=== PATIENT | male | born 1965 | race Caucasian/White ===

== ENCOUNTER 2016-06-29 05:12 | Day surgery (SDC) | payer BC ==
[2016-06-21 08:19] VITALS: BMI 26.6
[2016-06-29] MEDS ORDERED: BUPIVACAINE HCL/PF 0.5% (5MG/ML) 10 ML VIAL ONE (08:31)
[2016-06-29] MEDS ORDERED: LIDOCAINE HCL 1%, 10 MG/ML (20ML VIAL) ONE (08:31)
[2016-06-29] MEDS ORDERED: ceFAZolin SODIUM 1 GM VIAL ONE (08:44)
[2016-06-29] MEDS ORDERED: SODIUM CHLORIDE 0.9% P/F 10 ML VIAL IJ ONE (08:44)
[2016-06-29] MEDS ORDERED: KETOROLAC TROMETHAMINE 30 MG/1 ML VIAL ONE (08:44)
[2016-06-29] MEDS ORDERED: DEXAMETHASONE SOD PHOSPHATE 4 MG/1 ML VIAL ONE (08:44)
[2016-06-29] MEDS ORDERED: MIDAZOLAM HCL 2 MG/2 ML SINGLE DOSE VIAL ONE (08:44)
[2016-06-29] MEDS ORDERED: ceFAZolin SODIUM 1 GM VIAL IVPB ONE (08:56)
[2016-06-29] MEDS ORDERED: BUPIVACAINE HCL/PF 0.5% (5MG/ML) 10 ML VIAL IJ ONE (09:07)
--- NOTE | 2016-06-29 09:33 | HP ---
Satellite [facility] - Chief Complaint Chief Complaint: right middle finger pain/locking - Past Medical History Allergies/Adverse Reactions: Allergies Allergy/AdvReac Type Severity Reaction Status Date / Time No Known Drug Allergies Allergy Verified 06/29/16 08:30 - Current Medications Current Medications: Home Medications Medication Instructions Recorded Hydrocodone/Acetaminophen 1 each PO Q6H PRN #40 tablet MDD 4 06/29/16 [Hydrocodon-Acetaminophen 5-300] Satellite Physical Exam - Physical Examination Vital Signs: Vital Signs Period Temp Pulse Resp BP Sys/Saab Pulse Ox Last 24 Hr 97.4 F 100 20 146/90 99 General Appearance: Well Nourished, Well Developed, Alert & Oriented x3 ENT: Clear Lung: Normal air movement Heart: Regular rate & rhythm Extremities: Other (right middle finger- + locking, + ttp a1 morgan, nvi) Neurological: Intact, Alert, Oriented Satellite Impression/Plan - Impression/Plan Impression: right middle trigger finger Operative Procedure: right middle trigger finger release Date to be Performed: 06/29/16
--- NOTE | 2016-06-29 09:35 | OP ---
Operative Note - Note: Operative Date: 06/29/16 ([facility]) Pre-Operative Diagnosis: right middle trigger finger Operation: right middle trigger finger release Post-Operative Diagnosis: Same as Pre-op Surgeon: Nigel Pickard Anesthesiologist/ERGONOMICS ENGINEER: Jesus Pinon Jr. Anesthesia: Local, MAC Specimens Removed: tenosynovium Estimated Blood Loss (mls): 0 (tourniquet) Operative Report Dictated: Yes
[2016-06-29] MEDS ORDERED: ONDANSETRON 4 MG/2 ML VIAL IVPUSH PRN (09:46)
[2016-06-29] MEDS ORDERED: oxyCODONE HCL 5 MG TABLET PO PRN (09:46)
[2016-06-29] MEDS ORDERED: LACTATED RINGERS SOLUTION 1,000 ML IV SCH (10:00)
--- NOTE | 2016-06-29 10:04 | SPEC ---
DATE OF OPERATION: 06/29/2016 PREOPERATIVE DIAGNOSIS: Right middle finger trigger finger. POSTOPERATIVE DIAGNOSIS: Right middle finger trigger finger. PROCEDURE: Right middle finger trigger finger release and tendon sheath excision. SURGEON: Katia Kwan M.D. ASSISTANTS: None. , DIRECTOR OF PUBLIC SAFETY ANESTHESIA: MAC anesthesia. Local injection of 12 mL 0.5% Marcaine and 1% lidocaine mix. DRAINS: None. COMPLICATIONS: None. SPECIMENS: Tendon sheath right middle finger. BLOOD LOSS: None. BLOOD GIVEN: None. FLUID REPLACEMENT: 500 mL. 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 After understanding the potential risks, complications, alternatives and benefits of surgery, versus non-surgical treatment, the patient elected to undergo this procedure. The patient understands he may have temporary, or permanent, paresthesias. PROCEDURE: The patient was brought to the operating room, IV was placed, IV sedation was given. One gram of intravenous Ancef given. A tourniquet was applied to the right upper arm and the right upper extremity was prepped and draped in sterile fashion. The entire case was done under 3.8 loupe magnification. A marking pen was utilized to mynor out a longitudinal incision in an already existing skin crease at the base of the right middle finger, trigger finger. Then 10 mL of 0.5% Marcaine mixed with 1% Lidocaine was injected in and around the incision. The right upper extremity was elevated, exsanguinated with an Esmarch bandage and the tourniquet inflated to 250 mmHg. A No. 15 scalpel blade was utilized to cut down through the skin. Subcutaneous hemostasis was achieved with the bipolar cautery. Additional dissection was done with Littler scissors until I was able to directly visualize the A1 morgan sheath in its entirety. Self-retaining retractors were placed into the wound. A free air elevator was used to free up the tissue on the radial side, the ulnar side distally and proximally under better visualization of A1 morgan sheath. Next, using a fresh No. 15 scalpel blade, I excised the central one-third of the A1 morgan sheath and passed it off the field as specimen, tendon sheath, right finger. I then completed the release, both distally and proximally, and brought the FDS and FDP tendons out through the wound with a Ragnell retractor. There were no abnormal points of compression. I was able to move the right finger without the tendons bunching up at all. The area was then copiously irrigated and washed out. I then checked one more time to make sure there were no abnormal points of compression. None were seen and therefore closure was begun. One stitch using 4-0 Vicryl was used in the deep dermal layer. Skin was reapproximated with 4-0 Nylon sutures in a horizontal mattress fashion. The area was then washed and dried, covered with Xeroform gauze, sterile 4x4s, fluffs between the fingers, Webril and Coban. The tourniquet was taken down after a total tourniquet time of 18 minutes. There were no complications during the case. The patient tolerated the procedure well and was brought to the Ambulatory recovery Room in stable condition. KATIA KWAN M.D. 1 ROGER/[id number]
[2016-06-29 10:11] VITALS: TEMP 97.7
[2016-06-29 11:48] VITALS: BP 119/75; PULSE 88
--- NOTE | 2016-06-30 12:56 | PATH ---
Surgical Pathology Report Patient Name: DAVID LOPEZ [facility]. Rec. #: [id number] /Age/Gender: 1965 (Age: 51) / M Account: [id number] Location: [facility] Taken: 06/29/2016 Received: 06/29/2016 Reported: 06/30/2016 Physicians: Nigel Pickard M.D. Specimen(s) Received TENDON SHEATH RIGHT HAND Clinical History Right middle trigger finger Final Diagnosis SOFT TISSUE, TENDON SHEATH RIGHT HAND, EXCISION: SYNOVIUM WITH FIBROSIS. Electronically Signed Zach Mendiola M.D. Gross Description Received in formalin, labeled "tendon sheath right hand," is a 1.2 cm greatest dimension dejesus fragment of fibrous tissue. The specimen is submitted in toto in one cassette. 06/29/201606/29/2016
== END 2016-06-29 11:30 | disposition home or self-care (01) ==
LOC: JASU-SURG 05:12
PROVIDERS: ATTEND Orthopaedic Surgery
PROC: 0LN70ZZ Release Right Hand Tendon, Open Approach (ICD-10-PCS; 2016-06-29)
PROC: 0LB70ZZ Excision of Right Hand Tendon, Open Approach (ICD-10-PCS; principal; 2016-06-29 11:00)
DX: M65.331 Trigger finger, right middle finger (principal)
CPT/HCPCS: 88304-TC; 94760

== ENCOUNTER 2019-03-28 06:11 | Day surgery (SDC) | payer BC ==
[2019-03-27 15:42] VITALS: BMI 26.9
[2019-03-28] MEDS ORDERED: LIDOCAINE HCL 1%, 10 MG/ML (20ML VIAL) ONE (07:22)
[2019-03-28] MEDS ORDERED: BUPIVACAINE HCL/PF 0.5% (5 MG/ML) 30 ML VIAL IJ ONE ×3 (07:22→08:38)
[2019-03-28] MEDS ORDERED: PROPOFOL 20 ML ONE (07:50)
[2019-03-28] MEDS ORDERED: MIDAZOLAM HCL 2 MG/2 ML SINGLE DOSE VIAL ONE ×2 (07:50→08:22)
[2019-03-28] MEDS ORDERED: ceFAZolin SODIUM 1 GM VIAL IVPB ONE (08:10)
--- NOTE | 2019-03-28 08:12 | HP ---
Satellite [facility] - Chief Complaint Chief Complaint: left ring finger pain, triggering History of Present Illness: left ring finger trigger finger History Source: Patient Limitations to Obtaining History: No Limitations - Past Medical History Allergies/Adverse Reactions: Allergies Allergy/AdvReac Type Severity Reaction Status Date / Time No Known Drug Allergies Allergy Verified 06/29/16 08:30 - Current Medications Current Medications: Home Medications Medication Instructions Recorded Metoprolol Succinate 25 mg PO HS 03/28/19 Satellite Physical Exam - Physical Examination Vital Signs: Vital Signs Period Temp Pulse Resp BP Sys/Saab Pulse Ox Last 24 Hr 98.0 F 100 18 153/97 97 General Appearance: Well Nourished ENT: Clear Lung: Clear to auscultation Heart: Regular rate & rhythm Breasts: Soft Abdomen: Soft Extremities: No edema Satellite Impression/Plan - Impression/Plan Impression: left ring finger trigger finger Operative Procedure: left ring finger trigger finger release Date to be Performed: 03/28/19
[2019-03-28] MEDS ORDERED: ceFAZolin SODIUM 1 GM VIAL ONE (08:21)
[2019-03-28] MEDS ORDERED: DEXAMETHASONE SOD PHOSPHATE 4 MG/1 ML VIAL ONE (08:21)
[2019-03-28] MEDS ORDERED: KETOROLAC TROMETHAMINE 30 MG/1 ML VIAL ONE (08:21)
[2019-03-28] MEDS ORDERED: LIDOCAINE HCL 1%, 10 MG/ML (20ML VIAL) NR ONE ×2 (08:37)
--- NOTE | 2019-03-28 08:59 | OP ---
Operative Note - Note: Operative Date: 03/28/19 Pre-Operative Diagnosis: left ring finger trigger finger Operation: left ring finger trigger finger release, tenosynovectomy Post-Operative Diagnosis: Same as Pre-op Surgeon: Nigel Pickard Anesthesiologist/SOLUTION ENGINEER: Nely Bales Anesthesia: Local, MAC Estimated Blood Loss (mls): 0 Drains, Volume Out (mls): 0 Blood Volume Replaced (mls): 0 Fluid Volume Replaced (mls): 500 Operative Report Dictated: Yes
[2019-03-28 09:32] VITALS: PULSE 70; TEMP 97.4
[2019-03-28] MEDS ORDERED: ONDANSETRON 4 MG/2 ML VIAL IVPUSH PRN (10:29)
[2019-03-28] MEDS ORDERED: oxyCODONE HCL 5 MG TABLET PO PRN ×2 (10:29)
[2019-03-28] MEDS ORDERED: LACTATED RINGERS SOLUTION 1,000 ML IV SCH (10:30)
[2019-03-28 10:41] VITALS: BP 120/70
--- NOTE | 2019-03-28 15:38 | SPEC ---
DATE OF OPERATION: 03/28/2019 PREOPERATIVE DIAGNOSIS: Left ring finger trigger finger. POSTOPERATIVE DIAGNOSIS: Left ring finger trigger finger. PROCEDURE: Left ring finger trigger finger release and tenosynovectomy. SURGEON: Katia Kwan MD ASSISTANTS: None. ANESTHESIA: MAC anesthesia, local injection of 10 mL 0.5% Marcaine and 1% lidocaine mix. ANESTHESIOLOGIST: , WAITER/WAITRESS CAPTAIN DRAINS: None. COMPLICATIONS: None. SPECIMEN: None. BLOOD LOSS: None. BLOOD GIVEN: None. FLUID REPLACEMENT: Plasma-Lyte 500 mL. This patient is a 53-year-old male with preoperative diagnosis of a severe, recurrent left ring finger trigger finger. After understanding the potential risks, complications, alternatives, and benefits of surgery versus nonsurgical treatment, the patient elected to undergo this procedure. PROCEDURE: The patient was brought to the operating room, IV was placed, IV sedation was given. The patient had 1 gram of intravenous Ancef given. A tourniquet was applied to the left upper arm and the left upper extremity was prepped and draped in sterile fashion. The entire case was done under 3.8 loupe magnification. A marking pen was utilized to mynor out a longitudinal incision in an already existing skin crease at the base of the left ring finger. A mix of 10 mL of 0.5% Marcaine with 1% Lidocaine was injected in and around the incision. The left upper extremity was elevated, exsanguinated with an Esmarch bandage and the tourniquet inflated to 250 mm of mercury. A No. 15 scalpel blade was utilized to cut down through the skin. Subcutaneous hemostasis was achieved with the bipolar cautery. Additional dissection was done with Littler scissors until I was able to directly visualize the A-1 morgan sheath in its entirety. Self-retaining retractors were placed into the wound. A [place] elevator was used to free up the tissue on the radial side, the ulnar side distally and proximally under better visualization of A-1 morgan sheath. Next, using a fresh No. 15 scalpel blade, I excised the central 1/3 of the A-1 morgan sheath and passed it off the field as specimen, tendon sheath, ring finger. I then completed the release, both distally and proximally, and brought the FDS and FDP tendons out through the wound with a Ragnell retractor. There were no abnormal points of compression. I was able to move the ring finger without the tendons bunching up at all. The area was then copiously irrigated and washed out. I then checked one more time to make sure there were no abnormal points of compression. None were seen and therefore closure was begun. One stitch using 4-0 Vicryl was used in the deep dermal layer. Skin was reapproximated with 4-0 Nylon sutures in a horizontal mattress fashion. The area was then washed and dried, covered with Xeroform gauze, sterile 4x4s, fluffs between the fingers, Webril and Coban. The tourniquet was taken down after a total tourniquet time of 18 minutes. There were no complications during the case. The patient tolerated the procedure well and was brought to the ambulatory recovery room in stable condition. KATIA KWAN M.D. [id number]
== END 2019-03-28 10:35 | disposition home or self-care (01) ==
LOC: JASU-SURG 06:11
PROVIDERS: ATTEND Orthopaedic Surgery
PROC: 0LB80ZZ Excision of Left Hand Tendon, Open Approach (ICD-10-PCS; 2019-03-28)
PROC: 0LN80ZZ Release Left Hand Tendon, Open Approach (ICD-10-PCS; principal; 2019-03-28 08:00)
DX: M65.342 Trigger finger, left ring finger (principal)

== ENCOUNTER → 2020-08-13 | Day surgery (SDC) | payer BC ==
[2020-08-11 14:29] VITALS: BMI 26.3
[~2020-08-13] MED LIST: MIDAZOLAM HCL 2 MG/2 ML SINGLE DOSE VIAL IVPUSH ONE; MIDAZOLAM HCL 2 MG/2 ML SINGLE DOSE VIAL ONE
[2020-08-13 16:07] VITALS: BP 146/102; PULSE 109; TEMP 98.3
== END | disposition home or self-care (01) ==
LOC: JRADIR 04:38
PROVIDERS: ATTEND Internal Medicine Gastroenterology
PROC: 0FB03ZX Excision of Liver, Percutaneous Approach, Diagnostic (ICD-10-PCS; principal; 2020-08-13)
DX: K76.0 Fatty (change of) liver, not elsewhere classified (principal)
CPT/HCPCS: 47000; 76942-TC; 87899

== ENCOUNTER 2021-10-27 04:08 | Day surgery (SDC) | payer BC ==
[2021-10-25 10:44] VITALS: BMI 26.3
[2021-10-27] MEDS ORDERED: ONDANSETRON 4 MG/2 ML VIAL IVPUSH PRN (04:29)
[2021-10-27] MEDS ORDERED: LIDOCAINE HCL 1%, 10 MG/ML (20ML VIAL) ONE (07:24)
[2021-10-27] MEDS ORDERED: BUPIVACAINE HCL/PF 0.25% (2.5MG/ML) 10 ML VIAL ONE (07:25)
[2021-10-27] MEDS ORDERED: PROPOFOL 20 ML ONE ×2 (07:47)
[2021-10-27] MEDS ORDERED: MIDAZOLAM HCL 2 MG/2 ML SINGLE DOSE VIAL ONE (07:48)
[2021-10-27] MEDS ORDERED: SUCCINYLCHOLINE CHLORIDE 200 MG/10 ML SYRINGE ONE (07:54)
[2021-10-27] MEDS ORDERED: ceFAZolin SODIUM 1 GM VIAL ONE (08:06)
[2021-10-27] MEDS ORDERED: ceFAZolin SODIUM 1 GM VIAL IVPB ONE (08:13)
[2021-10-27] MEDS ORDERED: BUPIVACAINE HCL/PF 0.25% (2.5MG/ML) 10 ML VIAL IJ ONE ×2 (08:22)
[2021-10-27] MEDS ORDERED: LIDOCAINE HCL 1%, 10 MG/ML (50 mL VIAL) INF ONE ×2 (08:22)
[2021-10-27 10:36] VITALS: BP 147/90; PULSE 84; TEMP 97.8
== END 2021-10-27 10:37 | disposition home or self-care (01) ==
LOC: JASU-SURG 04:08
PROVIDERS: ATTEND Orthopaedic Surgery
PROC: 0LN80ZZ Release Left Hand Tendon, Open Approach (ICD-10-PCS; principal; 2021-10-27 08:00)
DX: M65.332 Trigger finger, left middle finger (principal)
CPT/HCPCS: 88304-TC